=== PATIENT | female | born 1975 | race Two or more races ===

== ENCOUNTER 2022-12-11 06:20 | Day surgery (SDC) | payer OTHER | END 2022-12-11 14:30 | disposition home or self-care (01) | LOC: CIR.AMB 06:20 | PROVIDERS: ATTEND Surgery | DX: N60.92 Unspecified benign mammary dysplasia of left breast (principal); N60.82 Other benign mammary dysplasias of left breast; N60.22 Fibroadenosis of left breast; N60.02 Solitary cyst of left breast; N62 Hypertrophy of breast; I10 Essential (primary) hypertension; Z20.822 Contact with and (suspected) exposure to COVID-19; Z88.6 Allergy status to analgesic agent; Z91.040 Latex allergy status ==